=== PATIENT | male | born 1955 | race Caucasian/White ===

== ENCOUNTER → 2021-01-06 | Outpatient (CLI) | payer BC, OTHER | LOC: SJCVCIMAG 06:25 | PROVIDERS: ATTEND Nurse Practitioner | DX: I70.8 Atherosclerosis of other arteries (principal); I73.9 Peripheral vascular disease, unspecified; I77.1 Stricture of artery; M25.551 Pain in right hip; M25.552 Pain in left hip; F17.200 Nicotine dependence, unspecified, uncomplicated ==

== ENCOUNTER → 2021-01-28 | Outpatient (CLI) | payer BC, OTHER ==
[~2021-01-28] VITALS: Ht 175.3 cm; Wt 83.0 kg
[~2021-01-28] MED LIST: ASA81BEC PO; AZELASTINE137 MCG/0. INH; LIPITOR20 MG PO; NORVASC10 MG PO; PLAVIX 75 MG TA75 MG PO
[2021-01-28 07:08] VITALS: BP 149/87
--- NOTE | 2021-01-29 14:51 | CATHLAB ---
[facility] [place] [address] INVASIVE PROCEDURE REPORT Name: GENEVIEVE HOLLAND Room #: [facility] Jhonatan.#: [id number] Admission: 01/28/21 Attend Phys: Abdirahman Trimble MD Discharge: Date of : 57 Report #: [id number] THIS REPORT FOR: cc: Genevieve Mauro James A. DO Mancuso, Gerald M. MD [facility] ~ APPROVED REPORT Study performed: 01/28/2021 09:51:49 Patient Details Patient Status: Out-Patient Room #: The patient is a 65 year-old male Event Personnel Abdirahman Trimble Radiologist, Brian Briseno Tub Attendant, Umu Gutierrez RN RN, Ingrid Castillo Monitor, Deborah Lang RTR, [employer]ARD SERVICE SUPERVISOR Scrub Procedures Performed Art Access - R femoral artery* Left Heart Cath w/or w/o Coronaries [id number] C Hemostasis w/ Mynx 45820 Initial Mod Sed Same Phys/QHP Gr5y [id number] Indication Chest pain Procedure Narrative A SHEATH BRITE-TIP 6F X 23CM ([id number]) sheath was inserted into the RFA^. Coronary angiography was performed using coronary diagnostic catheters. The right coronary system was accessed and visualized with a JR4 catheter. The left coronary system was accessed and visualized with a JL4 catheter. The left ventricle was accessed and visualized with a STR PIG catheter. A hematoma occurred. There was no hematoma. Intraoperative Conscious Sedation Sedation start time: 1015 Case end Time: 1040 Fentanyl 150 mcg Versed 2 mg Fluoro Time: 14.65 minutes Dose: DAP 251811.20 cGycm2 133 mGy Contrast Type and Amount: Visipaque 221 ml [facility] [place] [address] [place] [address] INVASIVE PROCEDURE REPORT Name: GENEVIEVE HOLLAND Room #: [facility]#: [id number] Admission: 01/28/21 Attend Phys: Abdirahman Trimble, Discharge: Date of : 57 Report #: [id number] Hemodynamics The aortic pressure is 155/85 mmHg with a mean of 36 mmHg. The left ventricular pressure is 114/15 mmHg with a mean of mmHg. The left ventricular end diastolic pressure is 37 mmHg. PCI Technique Lesion Percutaneous coronary intervention was performed on the Common iliac. Conclusion #1. Normal left ventricular size and systolic function lower limits of normal. EF 50 to 55%. #2 left main free of disease giving rise to LAD and circumflex. #3 LAD extends around the apex no occlusive disease. #4 circumflex OM nondominant high rising OM or ramus branch which is also free of disease no occlusive disease. #5 dominant right coronary artery relatively small in caliber but no occlusive disease. Recommendations and plan: Continue aggressive risk factor modification no indication for coronary intervention. <ELECTRONICALLY SIGNED> By: Brian Briseno MD, FAC 01/29/21 145 50 50 Brian Briseno MD, [facility] /INF
== END | disposition home or self-care (01) ==
LOC: CATH 06:45
PROVIDERS: ATTEND Nuclear Medicine Nuclear Cardiology
DX: R07.9 Chest pain, unspecified (principal); I25.10 Atherosclerotic heart disease of native coronary artery without angina pectoris; I70.213 Atherosclerosis of native arteries of extremities with intermittent claudication, bilateral legs; I70.1 Atherosclerosis of renal artery; I10 Essential (primary) hypertension; F17.210 Nicotine dependence, cigarettes, uncomplicated; Z98.890 Other specified postprocedural states; Z79.899 Other long term (current) drug therapy; Z82.49 Family history of ischemic heart disease and other diseases of the circulatory system